=== PATIENT | male | born 1940 | race Caucasian/White ===

== ENCOUNTER 2016-09-07 08:48 | Emergency (ER) | payer MEDICARE, OTHER ==
[2016-09-07] MEDS ORDERED: KETOROLAC TROMETHAMINE 30 MG/ML VIAL IM ONE (09:24)
[2016-09-07] MEDS ORDERED: KETOROLAC TROMETHAMINE 30 MG/ML VIAL ONE (09:30)
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
--- OUTSIDE RECORDS SUMMARY | 2016-09-07 09:34 | XMS REPORT | Continuity of Care Document ---
:1940 Author Organization [facility] ([facility]) Address [address] [place] [address] Phone [phone] Care Team Providers Name Role Phone Kevin Gonzalez Primary Care Provider [phone] Source Comments This disclosure is being made pursuant to the Care Everywhere program, applicable federal and state laws, and may not contain all informaitonavailable regarding this patient.[facility] ([facility]) Active Allergies and Adverse Reactions Allergen Noted Date Severity Reactions Comments Diltiazem Hcl 04/12/2012 Pruritus Skin on hands and feet came off. Current Medications Prescription Sig. Disp. Refills Start End Date Status Date omeprazole 20 mg Take 20 mg by mouth Active extended release capsule 2 times daily. atorvastatin 40 mg Take 40 mg by mouth Active tablet every evening. fenofibrate (TRICOR) 145 Take 145 mg by Active mg tablet mouth daily. aspirin 81 mg tablet Take 81 mg by mouth Active daily. DOCOSAHEXANOIC ACID/EPA Take 2 Tabs by Active (FISH OIL PO) mouth daily. CYANOCOBALAMIN, VITAMIN Take 1 Tab by mouth Active B-12, (VITAMIN B-12 PO) daily. levothyroxine 100 mcg Take 100 mcg by Active tablet mouth every morning before breakfast. insulin lispro (HumaLOG) inject 7 Units 12 mL 6 Active 100 unit/mL injection subcutaneously 3 3 vial times daily before meals. Indications: DIABETES MELLITUS SUPPLY ONE TOUCH ULTRA Test blood glucose 150 Strip Active test strips 4 times per day 4 Indications: TYPE 2 DIABETES MELLITUS HYDROCHLOROTHIAZIDE 25 Take 25 mg by mouth 3 Active mg tablet daily 5 IRBESARTAN 300 mg tablet Take 300 mg by 3 Active mouth daily 5 METOPROLOL tartrate 50 Take 50 mg by mouth 11 Active mg tablet 2 times daily 5 EASY TOUCH 31 X 5/16 " 5 Active ndle 5 insulin glargine Inject 48 Units 20 mL 11 Active (LanTUS) 100 unit/mL subcutaneously at 5 injection vial bedtime fluticasone 50 as needed. 1 Active mcg/Actuation nasal 6 spray insulin glargine (LanTUS Inject 44 units at 15 mL 11 Active SOLOSTAR) 100 unit/mL (3 bedtime. 6 mL) injection pen metFORMIN 500 mg tablet Take 1 tablet (500 60 tablet 11 Active mg total) by mouth 6 2 times daily. HUMALOG KWIKPEN 100 Inject 5-7 units 30 mL 3 Active unit/mL injection pen with meals plus 6 sliding scale Active Problems Problem Noted Date Family history of abdominal aortic aneurysm 12/04/2014 Chest pain, unspecified 11/19/2014 Diabetes mellitus 01/11/2013 HTN (hypertension) 01/11/2013 Hyperlipidemia Immunizations Name Dates Previously Given Next Due Influenza, unspecified 03/13/2014,02/20/2013,02/21/2012 Pneumococcal, unspecified 02/20/2013 Social History Tobacco Use Types Packs/Day Years Used Date Former Smoker Tobacco Cessation:Counseling Given: Yes Comments: Alcohol Use Drinks/Week oz/Week Comments No Last Filed Vital Signs Vital Sign Reading Time Taken Blood Pressure 161/71 09/30/2015 11:57 AM CDT Pulse 59 09/30/2015 11:57 AM CDT Temperature 36.3 C (97.3 F) 03/18/2014 10:35 AM CDT Respiratory Rate - - Height 1.753 m (5' 9.02") 11/19/2014 9:20 AM CDT Weight 107.9 kg (237 lb 14 oz) 09/30/2015 11:57 AM CDT Body Mass Index 35.11 09/30/2015 11:57 AM CDT Oxygen Saturation - - Plan of Care Date Type Specialty Providers Description 09/29/2016 Appointment Diabetes Services June Lemons MD Chief Comp: Patient [address] [place] [address] Visit [phone] (Fax) Health Maintenance Due Date Last Done Comments Hepatitis B Vaccine ( of 3 - 1940 Primary Series) Tdap Vaccine 1951 DIABETIC: Cholesterol 1957 Diabetic: Hdl 1957 DIABETIC: Triglycerides 1958 Td Vaccine 1958 Colonoscopy 06/28/1989 Zoster Vaccine 1999 Pneumococcal Vaccine (1 of 2 2004 - PCV13) DIABETIC: Foot Exam 01/09/2013 DIABETIC: Retinal Eye Exam 01/09/2013 Diabetic: Ldl 01/09/2014 01/09/2013 Influenza Vaccine: Seasonal 12/22/2015 03/13/2014, (#1) 02/20/2013, 02/21/2012 DIABETIC: Hemoglobin A1C 04/01/2016 09/30/2015, Additional history exists 12/11/2014, 03/18/2014 DIABETIC: Microalbumin 09/29/2016 09/30/2015, Additional history exists 12/11/2014, 01/09/2013 Results from Last 3 Months Not on file
[2016-09-07 10:01] VITALS: BP 160/68
[2016-09-07] MEDS ORDERED: CYCLOBENZAPRINE HCL 10 MG TABLET PO ONE (10:19)
[2016-09-07] MEDS ORDERED: CYCLOBENZAPRINE HCL 10 MG TABLET ONE (10:23)
== END 2016-09-07 10:31 | disposition home or self-care (01) ==
LOC: ER 08:48
DX: S39.012A Strain of muscle, fascia and tendon of lower back, initial encounter (principal); W18.09XA Striking against other object with subsequent fall, initial encounter